=== PATIENT | female | born 1985 | race African-American/Black ===

== ENCOUNTER 2016-03-31 17:33 | Emergency (ER) | payer OTHER ==
[~2016-03-31] VITALS: Ht 165.1 cm; Wt 100.0 kg
[~2016-03-31 17:33] MED LIST: NOCURR
[2016-03-31 20:04] LABS: BASOPHILS # (AUTO) 0.04 K/uL (0.00-0.20); BASOPHILS % (AUTO) 0.3 % (0.0-2.0); EOSINOPHILS # (AUTO) 0.04 K/uL (0.00-0.70); EOSINOPHILS % (AUTO) 0.36 % (1.0-6.0); HEMATOCRIT 39.8 % (36-46); HEMOGLOBIN 12.9 g/dL (12.0-16.0); LYMPHOCYTES # (AUTO) 2.9 K/uL (1.0-4.8); LYMPHOCYTES % (AUTO) 22.8 % (22.0-44.0); MEAN CORPUSCULAR HEMOGLOBIN 27.5 pg (26.0-34.0); MEAN CORPUSCULAR HGB CONC 32.5 G/dL (31.0-37.0); MEAN CORPUSCULAR VOLUME 85 fL (80-100); MONOCYTES # (AUTO) 0.5 K/uL (0.1-1.0); MONOCYTES % (AUTO) 3.6 % (2.0-9.0); NEUTROPHILS # (AUTO) 9.1 K/uL (1.8-7.7); NEUTROPHILS % (AUTO) 72.9 % (40.0-70.0); PLATELET COUNT (AUTO) 288 K/uL (150-450); RED BLOOD CELL COUNT(AUTO) 4.69 MIL/uL (4.00-5.20); RED CELL DISTRIBUTION WIDTH 14.7 % (11.5-14.5); WHITE BLOOD COUNT (AUTO) 12.5 K/uL (4.5-11.0)
[2016-03-31 20:12] LABS: ANION GAP 9 mmol/L (8-16); CALCIUM, TOTAL 8.7 mg/dL (8.8-10.5); CARBON DIOXIDE 28 mmol/L (22-29); CHLORIDE 101 mmol/L (98-107); CREATININE 1.03 mg/dL (0.60-1.30); GLOMERULAR FILTR. RATE CALC > 60 mL/min (>60); POTASSIUM 3.9 mmol/L (3.5-5.1); SODIUM SERUM 138 mmol/L (136-145); UREA NITROGEN, BLOOD 9 mg/dL (7-18)
[2016-03-31 20:20] LABS: ALANINE AMINOTRANSFERASE 20 U/L (12-78); ALBUMIN 3.4 g/dL (3.4-5.0); ASPARTATE AMINOTRANSFERASE 12 U/L (15-37); BILIRUBIN,TOTAL 0.3 mg/dL (0.1-1.0); TOTAL PROTEIN, SERUM 7.6 g/dL (6.4-8.2)
[2016-03-31 22:04] VITALS: BP 146/88
[2016-03-31 22:58] LABS: APPEARANCE,URINE CLEAR (CLEAR); GLUCOSE, URINE (UA) NEGATIVE (NEGATIVE); KETONES,URINE NEGATIVE (NEGATIVE); LEUKOCYTE ESTERASE ,URINE NEGATIVE (NEGATIVE); OCCULT BLOOD,URINE NEGATIVE (NEGATIVE); PH,URINE 6.5 (5.0-8.0); PROTEIN,URINE NEGATIVE (NEGATIVE)
[2016-03-31 23:09] LABS: RBC,URINE 0-2 /HPF (0-2); SQUAMOUS EPITHELIAL CELL,UR Few /LPF (None Seen); WBC,URINE 0-2 /HPF (0-5)
[2016-03-31] MEDS ORDERED: HYDROCODONE/ACETAMINOPHEN 5-325 MG TABLET PO ONE (23:15)
[2016-03-31] MEDS ORDERED: ONDANSETRON HCL 4 MG TABLET PO ONE (23:15)
== END 2016-03-31 23:26 | disposition home or self-care (01) ==
LOC: EMS 17:34
DX: R10.9 Unspecified abdominal pain (principal); F17.210 Nicotine dependence, cigarettes, uncomplicated
CPT/HCPCS: 36415; 76856; 80053; 81001; 84703; 85025; 99285; Q0162

== ENCOUNTER 2016-06-02 15:10 | Emergency (ER) | payer OTHER ==
[~2016-06-02] VITALS: Ht 177.8 cm; Wt 100.0 kg
[2016-06-02] MEDS ORDERED: HYDROCODONE/ACETAMINOPHEN 5-325 MG TABLET PO ONE (15:45)
[2016-06-02 15:55] LABS: APPEARANCE,URINE CLOUDY (CLEAR); GLUCOSE, URINE (UA) NEGATIVE (NEGATIVE); KETONES,URINE NEGATIVE (NEGATIVE); OCCULT BLOOD,URINE NEGATIVE (NEGATIVE); PROTEIN,URINE TRACE (NEGATIVE)
[2016-06-02 15:57] LABS: BASOPHILS % (AUTO) 0.2 % (0.0-2.0); EOSINOPHILS % (AUTO) 0.5 % (1.0-6.0); HEMATOCRIT 40.7 % (36-46); HEMOGLOBIN 13.1 g/dL (12.0-16.0); LYMPHOCYTES # (AUTO) 2.1 K/uL (1.0-4.8); LYMPHOCYTES % (AUTO) 18.1 % (22.0-44.0); MEAN CORPUSCULAR HEMOGLOBIN 27.8 pg (26.0-34.0); MEAN CORPUSCULAR HGB CONC 32.1 G/dL (31.0-37.0); MEAN CORPUSCULAR VOLUME 86 fL (80-100); MONOCYTES # (AUTO) 0.5 K/uL (0.1-1.0); MONOCYTES % (AUTO) 4.3 % (2.0-9.0); NEUTROPHILS % (AUTO) 76.9 % (40.0-70.0); PLATELET COUNT (AUTO) 257 K/uL (150-450); RED BLOOD CELL COUNT(AUTO) 4.71 MIL/uL (4.00-5.20); RED CELL DISTRIBUTION WIDTH 14.6 % (11.5-14.5); WHITE BLOOD COUNT (AUTO) 11.6 K/uL (4.5-11.0)
[2016-06-02 15:59] LABS: LEUKOCYTE ESTERASE ,URINE TRACE (NEGATIVE)
[2016-06-02 16:00] LABS: RBC,URINE 0-2 /HPF (0-2); SQUAMOUS EPITHELIAL CELL,UR Many /LPF (None Seen)
[2016-06-02 16:12] LABS: ANION GAP 11 mmol/L (8-16); CARBON DIOXIDE 25 mmol/L (22-29); CHLORIDE 104 mmol/L (98-107); CREATININE 0.72 mg/dL (0.60-1.30); GLOMERULAR FILTR. RATE CALC > 60 mL/min (>60); POTASSIUM 4.2 mmol/L (3.5-5.1); SODIUM SERUM 140 mmol/L (136-145); UREA NITROGEN, BLOOD 9 mg/dL (7-18)
[2016-06-02 16:18] LABS: ALANINE AMINOTRANSFERASE 17 U/L (12-78); ALBUMIN 3.6 g/dL (3.4-5.0); ASPARTATE AMINOTRANSFERASE 11 U/L (15-37); BILIRUBIN,TOTAL 0.5 mg/dL (0.1-1.0); TOTAL PROTEIN, SERUM 7.8 g/dL (6.4-8.2)
[2016-06-02 17:36] VITALS: BP 140/85
== END 2016-06-02 17:49 | disposition home or self-care (01) ==
LOC: EMS 15:11
DX: N39.0 Urinary tract infection, site not specified (principal); D25.9 Leiomyoma of uterus, unspecified; F17.210 Nicotine dependence, cigarettes, uncomplicated
CPT/HCPCS: 76830; 76856; 99285

== ENCOUNTER 2016-06-30 13:34 | Emergency (ER) | payer OTHER ==
[~2016-06-30] VITALS: Ht 165.1 cm; Wt 104.5 kg
[2016-06-30] MEDS ORDERED: IBUP-1547 PO (13:45)
[2016-06-30] MEDS ORDERED: KETOROLAC TROMETHAMINE 30 MG/ML VIAL IVP ONE (15:00)
[2016-06-30 15:04] LABS: BASOPHILS # (AUTO) 0.01 K/uL (0.00-0.20); BASOPHILS % (AUTO) 0.1 % (0.0-2.0); EOSINOPHILS # (AUTO) 0.11 K/uL (0.00-0.70); HEMATOCRIT 39.8 % (36-46); HEMOGLOBIN 12.9 g/dL (12.0-16.0); LYMPHOCYTES # (AUTO) 2.4 K/uL (1.0-4.8); LYMPHOCYTES % (AUTO) 19.7 % (22.0-44.0); MEAN CORPUSCULAR HEMOGLOBIN 28.4 pg (26.0-34.0); MEAN CORPUSCULAR HGB CONC 32.4 G/dL (31.0-37.0); MEAN CORPUSCULAR VOLUME 87 fL (80-100); MONOCYTES # (AUTO) 0.2 K/uL (0.1-1.0); MONOCYTES % (AUTO) 1.7 % (2.0-9.0); NEUTROPHILS # (AUTO) 9.4 K/uL (1.8-7.7); NEUTROPHILS % (AUTO) 77.6 % (40.0-70.0); PLATELET COUNT (AUTO) 279 K/uL (150-450); RED BLOOD CELL COUNT(AUTO) 4.55 MIL/uL (4.00-5.20); RED CELL DISTRIBUTION WIDTH 13.8 % (11.5-14.5); WHITE BLOOD COUNT (AUTO) 12.1 K/uL (4.5-11.0)
[2016-06-30 15:38] LABS: ANION GAP 10 mmol/L (8-16); CALCIUM, TOTAL 8.8 mg/dL (8.8-10.5); CARBON DIOXIDE 24 mmol/L (22-29); CHLORIDE 103 mmol/L (98-107); CREATININE 0.74 mg/dL (0.60-1.30); GLOMERULAR FILTR. RATE CALC > 60 mL/min (>60); POTASSIUM 3.7 mmol/L (3.5-5.1); SODIUM SERUM 137 mmol/L (136-145); UREA NITROGEN, BLOOD 6 mg/dL (7-18)
[2016-06-30 15:43] LABS: ALANINE AMINOTRANSFERASE 17 U/L (12-78); ALBUMIN 3.5 g/dL (3.4-5.0); ASPARTATE AMINOTRANSFERASE 12 U/L (15-37); BILIRUBIN,TOTAL 0.3 mg/dL (0.1-1.0); TOTAL PROTEIN, SERUM 7.6 g/dL (6.4-8.2)
[2016-06-30] MEDS ORDERED: BARIUM SULFATE 0.1% SUSPENSION 450 ML BOTTLE PO ONE (16:00)
[2016-06-30] MEDS ORDERED: IOVERSOL 350 MG/ML 150 ML VIAL ONE (17:48)
[2016-06-30] MEDS ORDERED: SODIUM CHLORIDE 0.9% 100 ML ONE (17:48)
[2016-06-30 18:59] VITALS: BP 137/90
== END 2016-06-30 20:02 | disposition home or self-care (01) ==
LOC: EMS 13:37
DX: N83.202 Unspecified ovarian cyst, left side (principal); F17.210 Nicotine dependence, cigarettes, uncomplicated
CPT/HCPCS: 36415; 74177; 80053; 83690; 85025; 96374; 99285; J1885; J7050; Q9967; Z7610

== ENCOUNTER 2016-10-27 12:27 | Observation (INO) | payer SELFPAY ==
[~2016-10-27] VITALS: Ht 165.1 cm; Wt 113.5 kg
[2016-10-27 14:19] VITALS: BP 131/78
[2016-10-27] MEDS ORDERED: PREN-155 PO (14:40)
[2016-10-27] MEDS ORDERED: ACET-2116 PO (14:40)
[2016-10-27 15:06] VITALS: BP 131/78
== END 2016-10-27 15:53 | disposition home or self-care (01) ==
LOC: EMS 12:28 → 4S 12:50 → INTOOBSV 12:50
PROVIDERS: ADMIT Obstetrics & Gynecology; ATTEND Obstetrics & Gynecology
DX: O26.892 Other specified pregnancy related conditions, second trimester (principal); R10.9 Unspecified abdominal pain; Z3A.20 20 weeks gestation of pregnancy
CPT/HCPCS: 59025; 99285; G0378

== ENCOUNTER 2017-03-20 19:26 | Emergency (ER) | payer OTHER ==
[~2017-03-20] VITALS: Ht 172.7 cm; Wt 113.6 kg
[~2017-03-20 19:26] MED LIST changes: +ACET-2116 PO; -NOCURR; +PREN-155 PO
[2017-03-20 20:22] LABS: BASOPHILS % (AUTO) 0.1 % (0.0-2.0); EOSINOPHILS % (AUTO) 0.1 % (1.0-6.0); HEMATOCRIT 33.5 % (36-46); HEMOGLOBIN 11.2 g/dL (12.0-16.0); LYMPHOCYTES % (AUTO) 9.9 % (22.0-44.0); MEAN CORPUSCULAR HEMOGLOBIN 27.6 pg (26.0-34.0); MEAN CORPUSCULAR HGB CONC 33.4 G/dL (31.0-37.0); MEAN CORPUSCULAR VOLUME 83 fL (80-100); MONOCYTES # (AUTO) 0.5 K/uL (0.1-1.0); MONOCYTES % (AUTO) 4.8 % (2.0-9.0); NEUTROPHILS # (AUTO) 8.6 K/uL (1.8-7.7); NEUTROPHILS % (AUTO) 85.1 % (40.0-70.0); PLATELET COUNT (AUTO) 287 K/uL (150-450); RED BLOOD CELL COUNT(AUTO) 4.05 MIL/uL (4.00-5.20); RED CELL DISTRIBUTION WIDTH 15.7 % (11.5-14.5)
[2017-03-20 20:38] LABS: ANION GAP 10 mmol/L (8-16); CALCIUM, TOTAL 8.5 mg/dL (8.8-10.5); CARBON DIOXIDE 24 mmol/L (22-29); CHLORIDE 102 mmol/L (98-107); CREATININE 0.74 mg/dL (0.60-1.30); GLOMERULAR FILTR. RATE CALC > 60 mL/min (>60); GLUCOSE,RANDOM 130 mg/dL (70-110); POTASSIUM 3.6 mmol/L (3.5-5.1); SODIUM SERUM 136 mmol/L (136-145); UREA NITROGEN, BLOOD 9 mg/dL (7-18)
[2017-03-20 20:44] LABS: ALANINE AMINOTRANSFERASE 11 U/L (12-78); ALBUMIN 2.3 g/dL (3.4-5.0); ALKALINE PHOSPHATASE 88 U/L (46-116); ASPARTATE AMINOTRANSFERASE 18 U/L (15-37); BILIRUBIN,TOTAL 0.5 mg/dL (0.1-1.0); LIPASE 107 U/L (73-393)
[2017-03-20 20:46] LABS: PLATELET MORPHOLOGY COMMENT NORMAL
[2017-03-20 20:53] LABS: APPEARANCE,URINE CLOUDY (CLEAR); BILIRUBIN,URINE NEGATIVE (NEGATIVE); GLUCOSE, URINE (UA) NEGATIVE (NEGATIVE); KETONES,URINE NEGATIVE (NEGATIVE); LEUKOCYTE ESTERASE ,URINE MODERATE (NEGATIVE); NITRATE,URINE POSITIVE (NEGATIVE); OCCULT BLOOD,URINE LARGE (NEGATIVE); PROTEIN,URINE SEE CONFIRM (NEGATIVE)
[2017-03-20 20:59] LABS: RBC,URINE 26-50 /HPF (0-2); SULFOSALICYLIC ACID,URINE 3+ (Negative)
[2017-03-20 21:00] LABS: WBC,URINE >100 /HPF (0-5)
[2017-03-20 21:01] LABS: BACTERIA,URINE Moderate /HPF (None Seen); SQUAMOUS EPITHELIAL CELL,UR Few /LPF (None Seen)
[2017-03-20] MEDS ORDERED: SODIUM CHLORIDE 0.9% 1,000 ML IV ONE ×2 (21:30→23:30)
[2017-03-20] MEDS ORDERED: PROCHLORPERAZINE EDISYLATE 5 MG/ML 2 ML VIAL IVP ONE (21:30)
[2017-03-20] MEDS ORDERED: CefTRIAXone SODIUM 2 GM in DEXTROSE 5%-WATER 20 ML IV ONE ×2 (21:30→21:45)
[2017-03-20] MEDS ORDERED: MORPHINE SULFATE 4 MG/ML SYRINGE IVP ONE (21:30)
[2017-03-20] MEDS ORDERED: ACETAMINOPHEN 500 MG TABLET PO ONE (21:45)
[2017-03-20 23:50] VITALS: BP 138/84
== END 2017-03-21 00:35 | disposition home or self-care (01) ==
LOC: EMS 19:34
DX: N12 Tubulo-interstitial nephritis, not specified as acute or chronic (principal); F17.210 Nicotine dependence, cigarettes, uncomplicated
CPT/HCPCS: 36415; 80053; 81001; 83690; 84703; 85025; 87040; 87077; 87086; 87186; 96361; 96374; 96375; 99284; J0696; J0780; J2270; J7030; J7060

== ENCOUNTER 2017-09-18 14:59 | Emergency (ER) | payer OTHER ==
[~2017-09-18] VITALS: Ht 165.1 cm; Wt 90.9 kg
[2017-09-18 15:39] LABS: BASOPHILS % (AUTO) 0.2 % (0.0-2.0); EOSINOPHILS % (AUTO) 1.1 % (1.0-6.0); HEMOGLOBIN 12.2 g/dL (12.0-16.0); LYMPHOCYTES # (AUTO) 3.2 K/uL (1.0-4.8); LYMPHOCYTES % (AUTO) 23.9 % (22.0-44.0); MEAN CORPUSCULAR HEMOGLOBIN 26.9 pg (26.0-34.0); MEAN CORPUSCULAR VOLUME 79 fL (80-100); MONOCYTES # (AUTO) 0.6 K/uL (0.1-1.0); MONOCYTES % (AUTO) 4.4 % (2.0-9.0); NEUTROPHILS # (AUTO) 9.5 K/uL (1.8-7.7); NEUTROPHILS % (AUTO) 70.4 % (40.0-70.0); PLATELET COUNT (AUTO) 359 K/uL (150-450); RED BLOOD CELL COUNT(AUTO) 4.54 MIL/uL (4.00-5.20); RED CELL DISTRIBUTION WIDTH 14.5 % (11.5-14.5)
[2017-09-18 15:52] LABS: ANION GAP 11 mmol/L (8-16); CARBON DIOXIDE 24 mmol/L (22-29); CHLORIDE 103 mmol/L (98-107); CREATININE 0.72 mg/dL (0.60-1.30); GLOMERULAR FILTR. RATE CALC > 60 mL/min (>60); GLUCOSE,RANDOM 127 mg/dL (70-110); POTASSIUM 3.6 mmol/L (3.5-5.1); SODIUM SERUM 138 mmol/L (136-145); UREA NITROGEN, BLOOD 9 mg/dL (7-18)
[2017-09-18 15:58] LABS: ALANINE AMINOTRANSFERASE 17 U/L (12-78); ALBUMIN 3.5 g/dL (3.4-5.0); ALKALINE PHOSPHATASE 53 U/L (46-116); ASPARTATE AMINOTRANSFERASE 12 U/L (15-37); BILIRUBIN,TOTAL 0.4 mg/dL (0.1-1.0)
[2017-09-18 16:10] LABS: APPEARANCE,URINE CLEAR (CLEAR); BILIRUBIN,URINE NEGATIVE (NEGATIVE); GLUCOSE, URINE (UA) NEGATIVE (NEGATIVE); KETONES,URINE NEGATIVE (NEGATIVE); LEUKOCYTE ESTERASE ,URINE NEGATIVE (NEGATIVE); NITRATE,URINE NEGATIVE (NEGATIVE); OCCULT BLOOD,URINE NEGATIVE (NEGATIVE); PH,URINE 5.5 (5.0-8.0); PROTEIN,URINE POS 1+ (NEGATIVE)
[2017-09-18 16:10] LABS: LIPASE 270 U/L (73-393)
[2017-09-18] MEDS ORDERED: KETOROLAC TROMETHAMINE 60 MG/2 ML VIAL IM ONE (16:45)
[2017-09-18 17:29] VITALS: BP 148/86
== END 2017-09-18 18:25 | disposition home or self-care (01) ==
LOC: EMS 17:17
DX: R10.9 Unspecified abdominal pain (principal); M54.5 Low back pain; Q61.9 Cystic kidney disease, unspecified; F17.210 Nicotine dependence, cigarettes, uncomplicated; Z86.32 Personal history of gestational diabetes
CPT/HCPCS: 36415; 74176; 80053; 81003; 83690; 84703; 85025; 96372; 99285; J1885

== ENCOUNTER 2017-11-03 13:03 | Emergency (ER) | payer OTHER ==
[~2017-11-03] VITALS: Ht 165.1 cm; Wt 94.2 kg
[2017-11-03] MEDS ORDERED: ALPRAZolam 0.5 MG TABLET PO ONE (13:45)
[2017-11-03 14:22] LABS: BASOPHILS % (AUTO) 0.5 % (0.0-2.0); EOSINOPHILS % (AUTO) 1.6 % (1.0-6.0); HEMOGLOBIN 12.2 g/dL (12.0-16.0); LYMPHOCYTES # (AUTO) 2.1 K/uL (1.0-4.8); LYMPHOCYTES % (AUTO) 16.3 % (22.0-44.0); MEAN CORPUSCULAR HEMOGLOBIN 26.9 pg (26.0-34.0); MEAN CORPUSCULAR HGB CONC 33.1 G/dL (31.0-37.0); MEAN CORPUSCULAR VOLUME 81 fL (80-100); MONOCYTES # (AUTO) 0.4 K/uL (0.1-1.0); MONOCYTES % (AUTO) 3.3 % (2.0-9.0); NEUTROPHILS # (AUTO) 10.1 K/uL (1.8-7.7); NEUTROPHILS % (AUTO) 78.3 % (40.0-70.0); PLATELET COUNT (AUTO) 345 K/uL (150-450); RED BLOOD CELL COUNT(AUTO) 4.54 MIL/uL (4.00-5.20); RED CELL DISTRIBUTION WIDTH 15.1 % (11.5-14.5)
[2017-11-03 14:32] LABS: ANION GAP 10 mmol/L (8-16); CALCIUM, TOTAL 8.8 mg/dL (8.8-10.5); CARBON DIOXIDE 26 mmol/L (22-29); CHLORIDE 101 mmol/L (98-107); CREATININE 0.85 mg/dL (0.60-1.30); GLOMERULAR FILTR. RATE CALC > 60 mL/min (>60); GLUCOSE,RANDOM 129 mg/dL (70-110); POTASSIUM 3.6 mmol/L (3.5-5.1); SODIUM SERUM 137 mmol/L (136-145); UREA NITROGEN, BLOOD 11 mg/dL (7-18)
[2017-11-03 14:38] LABS: ALANINE AMINOTRANSFERASE 23 U/L (12-78); ALBUMIN 3.4 g/dL (3.4-5.0); ALKALINE PHOSPHATASE 57 U/L (46-116); ASPARTATE AMINOTRANSFERASE 20 U/L (15-37); BILIRUBIN,TOTAL 0.4 mg/dL (0.1-1.0); TOTAL PROTEIN, SERUM 7.9 g/dL (6.4-8.2)
[2017-11-03 14:43] LABS: APPEARANCE,URINE CLEAR (CLEAR); BILIRUBIN,URINE NEGATIVE (NEGATIVE); GLUCOSE, URINE (UA) NEGATIVE (NEGATIVE); KETONES,URINE NEGATIVE (NEGATIVE); LEUKOCYTE ESTERASE ,URINE NEGATIVE (NEGATIVE); NITRATE,URINE NEGATIVE (NEGATIVE); OCCULT BLOOD,URINE NEGATIVE (NEGATIVE); PROTEIN,URINE SEE CONFIRM (NEGATIVE); UROBILINOGEN,URINE 0.2 mg/dL (<=1.0)
[2017-11-03 14:53] LABS: SULFOSALICYLIC ACID,URINE 1+ (Negative)
[2017-11-03 14:54] LABS: BACTERIA,URINE None Seen /HPF (None Seen); RBC,URINE None Seen /HPF (0-2); SQUAMOUS EPITHELIAL CELL,UR Few /LPF (None Seen); WBC,URINE 0-2 /HPF (0-5)
[2017-11-03 15:55] VITALS: BP 139/75
== END 2017-11-03 15:58 | disposition home or self-care (01) ==
LOC: EMS 13:04
DX: F41.9 Anxiety disorder, unspecified (principal); F17.210 Nicotine dependence, cigarettes, uncomplicated
CPT/HCPCS: 85379; 93005; 99285

== ENCOUNTER 2017-11-20 17:50 | Emergency (ER) | payer OTHER ==
[~2017-11-20] VITALS: Ht 165.1 cm; Wt 90.9 kg
[2017-11-20 18:29] LABS: BASOPHILS % (AUTO) 0.5 % (0.0-2.0); EOSINOPHILS % (AUTO) 1.5 % (1.0-6.0); HEMATOCRIT 35.7 % (36-46); HEMOGLOBIN 11.7 g/dL (12.0-16.0); LYMPHOCYTES # (AUTO) 3.1 K/uL (1.0-4.8); LYMPHOCYTES % (AUTO) 24.4 % (22.0-44.0); MEAN CORPUSCULAR HEMOGLOBIN 26.2 pg (26.0-34.0); MEAN CORPUSCULAR HGB CONC 32.7 G/dL (31.0-37.0); MEAN CORPUSCULAR VOLUME 80 fL (80-100); MONOCYTES # (AUTO) 0.3 K/uL (0.1-1.0); MONOCYTES % (AUTO) 2.5 % (2.0-9.0); NEUTROPHILS # (AUTO) 9.1 K/uL (1.8-7.7); NEUTROPHILS % (AUTO) 71.1 % (40.0-70.0); PLATELET COUNT (AUTO) 326 K/uL (150-450); RED BLOOD CELL COUNT(AUTO) 4.44 MIL/uL (4.00-5.20); RED CELL DISTRIBUTION WIDTH 15.1 % (11.5-14.5)
[2017-11-20 18:34] LABS: APPEARANCE,URINE CLEAR (CLEAR); BILIRUBIN,URINE NEGATIVE (NEGATIVE); GLUCOSE, URINE (UA) NEGATIVE (NEGATIVE); KETONES,URINE NEGATIVE (NEGATIVE); LEUKOCYTE ESTERASE ,URINE NEGATIVE (NEGATIVE); NITRATE,URINE NEGATIVE (NEGATIVE); OCCULT BLOOD,URINE NEGATIVE (NEGATIVE); PH,URINE 5.5 (5.0-8.0); PROTEIN,URINE POS 1+ (NEGATIVE); UROBILINOGEN,URINE 0.2 mg/dL (<=1.0)
[2017-11-20 18:36] LABS: ANION GAP 9 mmol/L (8-16); CALCIUM, TOTAL 9.1 mg/dL (8.8-10.5); CARBON DIOXIDE 27 mmol/L (22-29); CHLORIDE 102 mmol/L (98-107); CREATININE 0.83 mg/dL (0.60-1.30); GLOMERULAR FILTR. RATE CALC > 60 mL/min (>60); GLUCOSE,RANDOM 145 mg/dL (70-110); POTASSIUM 3.7 mmol/L (3.5-5.1); SODIUM SERUM 138 mmol/L (136-145); UREA NITROGEN, BLOOD 8 mg/dL (7-18)
[2017-11-20 18:47] LABS: ALANINE AMINOTRANSFERASE 24 U/L (12-78); ALBUMIN 3.4 g/dL (3.4-5.0); ALKALINE PHOSPHATASE 55 U/L (46-116); ASPARTATE AMINOTRANSFERASE 15 U/L (15-37); BILIRUBIN,TOTAL 0.4 mg/dL (0.1-1.0); HCG,QUANTITATIVE < 1 mIU/mL (0-6); TOTAL PROTEIN, SERUM 7.6 g/dL (6.4-8.2)
[2017-11-20 19:20] LABS: BACTERIA,URINE Few /HPF (None Seen)
[2017-11-20 19:21] LABS: RBC,URINE None Seen /HPF (0-2); SQUAMOUS EPITHELIAL CELL,UR Moderate /LPF (None Seen); WBC,URINE 0-2 /HPF (0-5)
[2017-11-20] MEDS ORDERED: HYDROCODONE/ACETAMINOPHEN 5-325 MG TABLET PO ONE (20:00)
[2017-11-20 20:10] LABS: AMPHET/METH SCREEN,URINE NEGATIVE (NEGATIVE); BARBITURATE SCREEN, URINE NEGATIVE (NEGATIVE); BENZODIAZEPINES SCREEN,URINE NEGATIVE (NEGATIVE); CANNABINOID SCREEN,URINE NEGATIVE (NEGATIVE); COCAINE SCREEN,URINE NEGATIVE (NEGATIVE); METHADONE SCREEN, URINE NEGATIVE (NEGATIVE); OPIATE SCREEN,URINE NEGATIVE (NEGATIVE)
[2017-11-20 20:12] LABS: PHENCYCLIDINE SCREEN,URINE NEGATIVE (NEGATIVE)
[2017-11-20 20:26] VITALS: BP 133/84
== END 2017-11-20 20:37 | disposition home or self-care (01) ==
LOC: EMS 17:52
DX: N80.9 Endometriosis, unspecified (principal); F17.210 Nicotine dependence, cigarettes, uncomplicated; F41.9 Anxiety disorder, unspecified; E66.01 Morbid (severe) obesity due to excess calories; Z86.32 Personal history of gestational diabetes; Z68.33 Body mass index [BMI] 33.0-33.9, adult
CPT/HCPCS: 76856; 99285

== ENCOUNTER 2017-12-20 17:26 | Emergency (ER) | payer OTHER ==
[~2017-12-20] VITALS: Ht 165.1 cm; Wt 100.0 kg
[2017-12-20] MEDS ORDERED: POVIDONE-IODINE 10% 15 ML SOLUTION UD TP ONE (21:30)
[2017-12-20] MEDS ORDERED: LIDOCAINE 1% 10 ML VIAL INJ ONE (21:30)
[2017-12-20] MEDS ORDERED: HYDROCODONE/ACETAMINOPHEN 5-325 MG TABLET PO ONE (21:30)
[2017-12-20] MEDS ORDERED: CEPHALEXIN MONOHYDRATE 500 MG CAPSULE PO ONE (22:45)
[2017-12-20 22:53] VITALS: BP 148/80
== END 2017-12-20 22:54 | disposition home or self-care (01) ==
LOC: EMS 17:27
DX: L02.412 Cutaneous abscess of left axilla (principal); I10 Essential (primary) hypertension; F17.210 Nicotine dependence, cigarettes, uncomplicated
CPT/HCPCS: 10060; 99283; J3490

== ENCOUNTER 2018-02-10 09:54 | Emergency (ER) | payer OTHER ==
[~2018-02-10] VITALS: Ht 165.1 cm; Wt 100.0 kg
[2018-02-10] MEDS ORDERED: HYDROCODONE/ACETAMINOPHEN 5-325 MG TABLET PO ONE (11:30)
[2018-02-10] MEDS ORDERED: AMOX TR/POT CLAV 875 MG/125 MG TABLET PO ONE (11:30)
[2018-02-10 12:10] VITALS: BP 135/82
== END 2018-02-10 12:12 | disposition home or self-care (01) ==
LOC: EMS 09:55
DX: K04.7 Periapical abscess without sinus (principal); F17.210 Nicotine dependence, cigarettes, uncomplicated

== ENCOUNTER 2018-05-08 14:39 | Emergency (ER) | payer OTHER ==
[~2018-05-08] VITALS: Ht 165.1 cm; Wt 104.5 kg
[2018-05-08] MEDS ORDERED: HYPERTENSION MED PO (14:59)
[2018-05-08 20:15] VITALS: BP 128/84
== END 2018-05-08 20:15 | disposition home or self-care (01) ==
LOC: EMS 14:39
DX: J32.9 Chronic sinusitis, unspecified (principal); H66.92 Otitis media, unspecified, left ear; I10 Essential (primary) hypertension; Z79.899 Other long term (current) drug therapy

== ENCOUNTER 2018-05-10 13:22 | Emergency (ER) | payer OTHER ==
[~2018-05-10] VITALS: Ht 165.1 cm; Wt 104.5 kg
[~2018-05-10 13:22] MED LIST changes: -ACET-2116 PO; +HYPERTENSION MED PO; -PREN-155 PO
[2018-05-10 13:25] VITALS: BP 138/96
[2018-05-10] MEDS ORDERED: KETOROLAC TROMETHAMINE 10 MG TABLET PO ONE (15:00)
== END 2018-05-10 15:20 | disposition home or self-care (01) ==
LOC: EMS 13:22
DX: K08.89 Other specified disorders of teeth and supporting structures (principal); H65.93 Unspecified nonsuppurative otitis media, bilateral; I10 Essential (primary) hypertension

== ENCOUNTER 2018-07-27 12:40 | Emergency (ER) | payer OTHER ==
[~2018-07-27] VITALS: Ht 165.1 cm; Wt 100.0 kg
[2018-07-27] MEDS ORDERED: HYDR25TA PO (13:29)
[2018-07-27 14:15] VITALS: BP 18/79
== END 2018-07-27 15:19 | disposition home or self-care (01) ==
LOC: EMS 12:41
DX: N80.9 Endometriosis, unspecified (principal); R10.2 Pelvic and perineal pain; I10 Essential (primary) hypertension; F17.210 Nicotine dependence, cigarettes, uncomplicated
CPT/HCPCS: 99406

== ENCOUNTER 2019-05-02 10:53 | Emergency (ER) | payer OTHER ==
[~2019-05-02] VITALS: Ht 165.1 cm; Wt 113.6 kg
[~2019-05-02 10:53] MED LIST changes: +HYDR-1475 PO
[2019-05-02] MEDS ORDERED: HYDROCODONE/ACETAMINOPHEN 5-325 MG TABLET PO ONE (12:00)
[2019-05-02 12:06] LABS: BASOPHILS % (AUTO) 0.4 % (0.0-2.0); EOSINOPHILS % (AUTO) 1.8 % (1.0-6.0); HEMATOCRIT 38.5 % (36-46); HEMOGLOBIN 12.8 g/dL (12.0-16.0); LYMPHOCYTES % (AUTO) 18.3 % (22.0-44.0); MEAN CORPUSCULAR HEMOGLOBIN 26.7 pg (26.0-34.0); MEAN CORPUSCULAR HGB CONC 33.1 G/dL (31.0-37.0); MEAN CORPUSCULAR VOLUME 81 fL (80-100); MONOCYTES # (AUTO) 0.4 K/uL (0.1-1.0); MONOCYTES % (AUTO) 3.8 % (2.0-9.0); NEUTROPHILS # (AUTO) 8.5 K/uL (1.8-7.7); NEUTROPHILS % (AUTO) 75.7 % (40.0-70.0); PLATELET COUNT (AUTO) 345 K/uL (150-450); RED BLOOD CELL COUNT(AUTO) 4.78 MIL/uL (4.00-5.20)
[2019-05-02 12:29] LABS: ALANINE AMINOTRANSFERASE 23 U/L (12-78); ALBUMIN 3.5 g/dL (3.4-5.0); ALKALINE PHOSPHATASE 65 U/L (46-116); ASPARTATE AMINOTRANSFERASE 10 U/L (15-37); BILIRUBIN,TOTAL 0.2 mg/dL (0.1-1.0); CALCIUM, TOTAL 9.9 mg/dL (8.8-10.5); CHLORIDE 98 mmol/L (98-107); CREATININE 0.82 mg/dL (0.60-1.30); GLOMERULAR FILTR. RATE CALC > 60 mL/min (>60); GLUCOSE,RANDOM 212 mg/dL (70-110); HCG,QUANTITATIVE < 1 mIU/mL (0-6); LIPASE 171 U/L (73-393); POTASSIUM 3.7 mmol/L (3.5-5.1); SODIUM SERUM 134 mmol/L (136-145); TOTAL PROTEIN, SERUM 8.1 g/dL (6.4-8.2); UREA NITROGEN, BLOOD 9 mg/dL (7-18)
[2019-05-02 12:30] VITALS: BP 146/90
[2019-05-02 12:36] LABS: ANION GAP 8 mmol/L (8-16); CARBON DIOXIDE 28 mmol/L (22-29)
== END 2019-05-02 12:56 | disposition home or self-care (01) ==
LOC: EMS 10:57
DX: R10.2 Pelvic and perineal pain (principal); F17.210 Nicotine dependence, cigarettes, uncomplicated; I10 Essential (primary) hypertension; E11.9 Type 2 diabetes mellitus without complications

== ENCOUNTER 2019-08-30 16:27 | Emergency (ER) | payer OTHER ==
[~2019-08-30] VITALS: Ht 165.1 cm; Wt 122.7 kg
[~2019-08-30 16:27] MED LIST changes: -HYPERTENSION MED PO
[2019-08-30] MEDS ORDERED: IBUP-2271 PO (16:32)
[2019-08-30] MEDS ORDERED: ACET-66 PO (16:32)
[2019-08-30] MEDS ORDERED: METF-960 PO (16:32)
[2019-08-30 17:53] VITALS: BP 149/85
[2019-08-30 21:10] LABS: GLUCOSE,POINT OF CARE 193 MG/DL (70-110)
== END 2019-08-30 17:57 | disposition home or self-care (01) ==
LOC: EMS 16:30
DX: R51 Headache (principal); J02.9 Acute pharyngitis, unspecified; E11.9 Type 2 diabetes mellitus without complications; I10 Essential (primary) hypertension; F17.210 Nicotine dependence, cigarettes, uncomplicated; Z79.84 Long term (current) use of oral hypoglycemic drugs

== ENCOUNTER 2019-09-01 20:15 | Emergency (ER) | payer OTHER ==
[~2019-09-01] VITALS: Ht 165.1 cm; Wt 118.2 kg
[~2019-09-01 20:15] MED LIST changes: +ACET-66 PO; +IBUP-2271 PO; +METF-960 PO
[2019-09-01] MEDS ORDERED: CYCL10 PO (20:34)
[2019-09-01] MEDS ORDERED: KETOROLAC TROMETHAMINE 30 MG/ML VIAL IVP ONE (21:15)
[2019-09-01] MEDS ORDERED: ACETAMINOPHEN 500 MG TABLET PO ONE (21:15)
[2019-09-01 21:36] LABS: ANION GAP 8 mmol/L (8-16); CARBON DIOXIDE 30 mmol/L (22-29); CHLORIDE 102 mmol/L (98-107); CREATININE 0.71 mg/dL (0.60-1.30); GLOMERULAR FILTR. RATE CALC > 60 mL/min (>60); GLUCOSE,RANDOM 99 mg/dL (70-110); POTASSIUM 3.6 mmol/L (3.5-5.1); SODIUM SERUM 140 mmol/L (136-145); UREA NITROGEN, BLOOD 13 mg/dL (7-18)
[2019-09-01 21:45] LABS: HCG,QUANTITATIVE < 1 mIU/mL (0-6)
[2019-09-01 21:54] LABS: AMPHET/METH SCREEN,URINE NEGATIVE (NEGATIVE); BARBITURATE SCREEN, URINE NEGATIVE (NEGATIVE); BENZODIAZEPINES SCREEN,URINE NEGATIVE (NEGATIVE); CANNABINOID SCREEN,URINE NEGATIVE (NEGATIVE); COCAINE SCREEN,URINE NEGATIVE (NEGATIVE); METHADONE SCREEN, URINE NEGATIVE (NEGATIVE); OPIATE SCREEN,URINE NEGATIVE (NEGATIVE)
[2019-09-01 21:57] LABS: PHENCYCLIDINE SCREEN,URINE NEGATIVE (NEGATIVE)
[2019-09-01 22:39] LABS: BASOPHILS % (AUTO) 0.2 % (0.0-2.0); EOSINOPHILS % (AUTO) 1.6 % (1.0-6.0); HEMATOCRIT 37.5 % (36-46); LYMPHOCYTES # (AUTO) 3.5 K/uL (1.0-4.8); LYMPHOCYTES % (AUTO) 29.4 % (22.0-44.0); MEAN CORPUSCULAR HEMOGLOBIN 26.2 pg (26.0-34.0); MEAN CORPUSCULAR VOLUME 82 fL (80-100); MONOCYTES # (AUTO) 0.6 K/uL (0.1-1.0); MONOCYTES % (AUTO) 5.2 % (2.0-9.0); NEUTROPHILS # (AUTO) 7.6 K/uL (1.8-7.7); NEUTROPHILS % (AUTO) 63.6 % (40.0-70.0); PLATELET COUNT (AUTO) 350 K/uL (150-450); RED BLOOD CELL COUNT(AUTO) 4.58 MIL/uL (4.00-5.20); RED CELL DISTRIBUTION WIDTH 15.3 % (11.5-14.5)
[2019-09-01 22:52] VITALS: BP 158/82
== END 2019-09-01 23:15 | disposition left against medical advice (07) ==
LOC: EMS 20:15
DX: R51 Headache (principal); I10 Essential (primary) hypertension; E11.9 Type 2 diabetes mellitus without complications; Z79.899 Other long term (current) drug therapy; F17.210 Nicotine dependence, cigarettes, uncomplicated
CPT/HCPCS: 36415; 80048; 80307; 84702; 85025; 96374; 99283; J1885

== ENCOUNTER 2019-10-28 19:00 | Emergency (ER) | payer OTHER ==
[~2019-10-28] VITALS: Ht 165.1 cm; Wt 122.7 kg
[~2019-10-28 19:00] MED LIST changes: +CYCL10 PO; -IBUP-2271 PO; +IBUP-2759 PO
[2019-10-28 20:47] VITALS: BP 135/77
== END 2019-10-28 21:55 | disposition home or self-care (01) ==
LOC: EMS 19:00
DX: K04.7 Periapical abscess without sinus (principal); E11.9 Type 2 diabetes mellitus without complications; I10 Essential (primary) hypertension; F17.210 Nicotine dependence, cigarettes, uncomplicated; Z79.899 Other long term (current) drug therapy
CPT/HCPCS: 99283; Z7502

== ENCOUNTER 2019-12-11 17:28 | Emergency (ER) | payer OTHER ==
[~2019-12-11] VITALS: Ht 165.1 cm; Wt 122.7 kg
[2019-12-11] MEDS ORDERED: ACETAMINOPHEN/CODEINE 300-30 MG TABLET PO ONE ×2 (19:00→21:45)
[2019-12-11 19:53] LABS: APPEARANCE,URINE CLEAR (CLEAR); BILIRUBIN,URINE NEGATIVE (NEGATIVE); GLUCOSE, URINE (UA) NEGATIVE (NEGATIVE); KETONES,URINE NEGATIVE (NEGATIVE); LEUKOCYTE ESTERASE ,URINE NEGATIVE (NEGATIVE); NITRATE,URINE NEGATIVE (NEGATIVE); OCCULT BLOOD,URINE NEGATIVE (NEGATIVE); PROTEIN,URINE SEE CONFIRM (NEGATIVE)
[2019-12-11 20:27] LABS: SULFOSALICYLIC ACID,URINE 3+ (Negative)
[2019-12-11 20:29] LABS: BACTERIA,URINE None Seen /HPF (None Seen); CALCIUM OXALATE CRYSTALS,UR Few /LPF (None Seen); RBC,URINE None Seen /HPF (0-2); SQUAMOUS EPITHELIAL CELL,UR Moderate /LPF (None Seen); WBC,URINE None Seen /HPF (0-5)
[2019-12-11 21:50] VITALS: BP 145/79
== END 2019-12-11 22:00 | disposition home or self-care (01) ==
LOC: EMS 17:44
DX: N80.9 Endometriosis, unspecified (principal); F17.210 Nicotine dependence, cigarettes, uncomplicated; E11.9 Type 2 diabetes mellitus without complications; I10 Essential (primary) hypertension; Z79.84 Long term (current) use of oral hypoglycemic drugs
CPT/HCPCS: 76856; 81001-TC; 81002-TC; Z7502; Z7610

== ENCOUNTER 2020-01-30 14:39 | Emergency (ER) | payer OTHER ==
[~2020-01-30] VITALS: Ht 165.1 cm; Wt 100.0 kg
[~2020-01-30 14:39] MED LIST changes: +ACET-3385 PO; -ACET-66 PO
[2020-01-30 15:34] VITALS: BP 140/85
== END 2020-01-30 15:34 | disposition home or self-care (01) ==
LOC: EMS 14:39
DX: N80.9 Endometriosis, unspecified (principal); F17.210 Nicotine dependence, cigarettes, uncomplicated; E11.9 Type 2 diabetes mellitus without complications; I10 Essential (primary) hypertension; Z79.84 Long term (current) use of oral hypoglycemic drugs
CPT/HCPCS: 99406; Z7502

== ENCOUNTER 2020-09-08 16:27 | Emergency (ER) | payer OTHER ==
[~2020-09-08] VITALS: Ht 165.1 cm; Wt 102.3 kg
[~2020-09-08 16:27] MED LIST changes: -HYDR-1475 PO; +HYDR25TA2 PO
[2020-09-08 18:14] LABS: COVID AG,FIA SOURCE NASOPHARYNGEAL
[2020-09-08] MEDS ORDERED: ACETAMINOPHEN 325 MG TABLET PO ONE (18:30)
[2020-09-08 19:19] VITALS: BP 157/96
== END 2020-09-08 19:33 | disposition home or self-care (01) ==
LOC: EMS 16:27
DX: J02.9 Acute pharyngitis, unspecified (principal); Z20.822 Contact with and (suspected) exposure to COVID-19; F17.210 Nicotine dependence, cigarettes, uncomplicated; E11.9 Type 2 diabetes mellitus without complications; I10 Essential (primary) hypertension; Z79.84 Long term (current) use of oral hypoglycemic drugs; Z79.899 Other long term (current) drug therapy
CPT/HCPCS: 82962; 87430; 99283

== ENCOUNTER 2020-09-12 10:12 | Emergency (ER) | payer OTHER ==
[~2020-09-12] VITALS: Ht 172.7 cm; Wt 120.5 kg
[2020-09-12] MEDS ORDERED: ACETAMINOPHEN 325 MG TABLET PO ONE (11:00)
[2020-09-12 11:30] VITALS: BP 133/81
== END 2020-09-12 11:55 | disposition home or self-care (01) ==
LOC: EMS 10:12
DX: K02.9 Dental caries, unspecified (principal); E11.9 Type 2 diabetes mellitus without complications; I10 Essential (primary) hypertension; F17.210 Nicotine dependence, cigarettes, uncomplicated; Z79.84 Long term (current) use of oral hypoglycemic drugs
CPT/HCPCS: 82962; 99283

== ENCOUNTER 2020-09-23 14:28 | Emergency (ER) | payer OTHER ==
[~2020-09-23] VITALS: Ht 165.1 cm; Wt 113.6 kg
[2020-09-23 14:33] VITALS: BP 138/94
[2020-09-23] MEDS ORDERED: LIDOCAINE 1% 10 ML VIAL IM ONE (16:00)
[2020-09-23] MEDS ORDERED: IBUPROFEN 400 MG TABLET PO ONE (17:00)
[2020-09-23] MEDS ORDERED: ACETAMINOPHEN 325 MG TABLET PO ONE (17:00)
== END 2020-09-23 17:25 | disposition home or self-care (01) ==
LOC: EMS 14:37
DX: L02.416 Cutaneous abscess of left lower limb (principal); E11.9 Type 2 diabetes mellitus without complications; I10 Essential (primary) hypertension; F17.210 Nicotine dependence, cigarettes, uncomplicated
CPT/HCPCS: 10060; 99283; J3490

== ENCOUNTER 2020-12-23 15:38 | Emergency (ER) | payer OTHER ==
[~2020-12-23] VITALS: Ht 165.1 cm; Wt 113.6 kg
[~2020-12-23 15:38] MED LIST changes: -CYCL10 PO; +CYCL10TA17 PO; +METF-1211 PO; -METF-960 PO
[2020-12-23 16:17] LABS: GLUCOSE,POINT OF CARE 103 MG/DL (70-110)
[2020-12-23] MEDS ORDERED: HYDROCODONE/ACETAMINOPHEN 5-325 MG TABLET PO ONE (18:15)
[2020-12-23] MEDS ORDERED: ATOR40TA71 PO (18:18)
[2020-12-23 19:04] LABS: APPEARANCE,URINE CLEAR (CLEAR); BILIRUBIN,URINE NEGATIVE (NEGATIVE); GLUCOSE, URINE (UA) NEGATIVE (NEGATIVE); KETONES,URINE NEGATIVE (NEGATIVE); LEUKOCYTE ESTERASE ,URINE NEGATIVE (NEGATIVE); NITRATE,URINE NEGATIVE (NEGATIVE); OCCULT BLOOD,URINE NEGATIVE (NEGATIVE); PROTEIN,URINE POS 1+ (NEGATIVE); UROBILINOGEN,URINE 0.2 mg/dL (<=1.0)
[2020-12-23 19:10] VITALS: BP 148/96
== END 2020-12-23 19:17 | disposition home or self-care (01) ==
LOC: EMS 15:53
DX: R10.2 Pelvic and perineal pain (principal)
CPT/HCPCS: 81003; 82962; 84703; 99283

== ENCOUNTER 2021-01-02 08:04 | Emergency (ER) | payer OTHER ==
[~2021-01-02] VITALS: Ht 165.1 cm; Wt 114.0 kg
[~2021-01-02 08:04] MED LIST changes: +ATOR40TA71 PO
[2021-01-02 08:26] VITALS: BP 131/73
== END 2021-01-02 11:29 | disposition home or self-care (01) ==
LOC: EMS 08:04
DX: N80.9 Endometriosis, unspecified (principal); E11.9 Type 2 diabetes mellitus without complications; F17.210 Nicotine dependence, cigarettes, uncomplicated; Z79.84 Long term (current) use of oral hypoglycemic drugs; Z79.899 Other long term (current) drug therapy
CPT/HCPCS: 99282; Z7502

== ENCOUNTER 2021-01-24 16:35 | Emergency (ER) | payer OTHER ==
[~2021-01-24] VITALS: Ht 165.1 cm; Wt 113.6 kg
[2021-01-24 16:48] VITALS: BP 158/97
[2021-01-24 17:12] LABS: BASOPHILS % (AUTO) 0.2 % (0.0-2.0); EOSINOPHILS % (AUTO) 1.2 % (1.0-6.0); HEMATOCRIT 36.2 % (36-46); HEMOGLOBIN 11.9 g/dL (12.0-16.0); LYMPHOCYTES % (AUTO) 24.9 % (22.0-44.0); MEAN CORPUSCULAR HEMOGLOBIN 26.7 pg (26.0-34.0); MEAN CORPUSCULAR HGB CONC 32.8 G/dL (31.0-37.0); MEAN CORPUSCULAR VOLUME 81 fL (80-100); MONOCYTES # (AUTO) 0.3 K/uL (0.1-1.0); MONOCYTES % (AUTO) 2.6 % (2.0-9.0); NEUTROPHILS # (AUTO) 8.5 K/uL (1.8-7.7); NEUTROPHILS % (AUTO) 71.1 % (40.0-70.0); PLATELET COUNT (AUTO) 358 K/uL (150-450); RED BLOOD CELL COUNT(AUTO) 4.46 MIL/uL (4.00-5.20)
[2021-01-24 17:18] LABS: ANION GAP 8 mmol/L (8-16); CALCIUM, TOTAL 8.9 mg/dL (8.8-10.5); CARBON DIOXIDE 26 mmol/L (22-29); CHLORIDE 103 mmol/L (98-107); GLOMERULAR FILTR. RATE CALC > 60 mL/min (>60); GLUCOSE,RANDOM 205 mg/dL (70-110); POTASSIUM 3.5 mmol/L (3.5-5.1); SODIUM SERUM 137 mmol/L (136-145); UREA NITROGEN, BLOOD 12 mg/dL (7-18)
[2021-01-24 17:29] LABS: ALANINE AMINOTRANSFERASE 21 U/L (12-78); ALBUMIN 3.5 g/dL (3.4-5.0); ALKALINE PHOSPHATASE 64 U/L (46-116); ASPARTATE AMINOTRANSFERASE 14 U/L (15-37); BILIRUBIN,TOTAL 0.3 mg/dL (0.1-1.0); HCG,QUANTITATIVE < 1 mIU/mL (0-6); LIPASE 146 U/L (73-393); TOTAL PROTEIN, SERUM 7.8 g/dL (6.4-8.2)
[2021-01-24] MEDS ORDERED: TraMADol HCL 50 MG TABLET PO ONE (17:30)
== END 2021-01-24 17:46 | disposition home or self-care (01) ==
LOC: EMS 16:40
DX: N80.9 Endometriosis, unspecified (principal); E11.9 Type 2 diabetes mellitus without complications; F17.210 Nicotine dependence, cigarettes, uncomplicated
CPT/HCPCS: 80053; 83690; 84702; 85025; 99283

== ENCOUNTER 2021-04-15 12:36 | Emergency (ER) | payer OTHER ==
[~2021-04-15] VITALS: Ht 165.1 cm; Wt 113.6 kg
[2021-04-15] MEDS ORDERED: HYDROCODONE/ACETAMINOPHEN 5-325 MG TABLET PO ONE (13:15)
[2021-04-15 13:18] LABS: APPEARANCE,URINE CLEAR (CLEAR); BILIRUBIN,URINE NEGATIVE (NEGATIVE); GLUCOSE, URINE (UA) NEGATIVE (NEGATIVE); KETONES,URINE NEGATIVE (NEGATIVE); LEUKOCYTE ESTERASE ,URINE NEGATIVE (NEGATIVE); NITRATE,URINE NEGATIVE (NEGATIVE); OCCULT BLOOD,URINE NEGATIVE (NEGATIVE); PH,URINE 5.5 (5.0-8.0); PROTEIN,URINE NEGATIVE (NEGATIVE); SPECIFIC GRAVITIY, URINE 1.008 (1.003-1.030); UROBILINOGEN,URINE <=1.0 mg/dL (<=1.0)
[2021-04-15 13:20] LABS: BACTERIA,URINE None Seen /HPF (None Seen); RBC,URINE None Seen /HPF (0-2); WBC,URINE None Seen /HPF (0-5)
[2021-04-15 13:45] VITALS: BP 144/81
[2021-04-15] MEDS ORDERED: HYDR-4723 PO (14:18)
== END 2021-04-15 14:32 | disposition home or self-care (01) ==
LOC: EMS 12:42
DX: N80.9 Endometriosis, unspecified (principal); I10 Essential (primary) hypertension; E11.9 Type 2 diabetes mellitus without complications; Z79.84 Long term (current) use of oral hypoglycemic drugs; Z79.899 Other long term (current) drug therapy; F17.210 Nicotine dependence, cigarettes, uncomplicated
CPT/HCPCS: 81001; 84703; 99283

== ENCOUNTER 2021-05-19 12:07 | Emergency (ER) | payer OTHER ==
[~2021-05-19] VITALS: Ht 165.1 cm; Wt 11.8 kg
[~2021-05-19 12:07] MED LIST changes: +CYCL-448 PO; -CYCL10TA17 PO; +HYDR-4723 PO
[2021-05-19 13:45] LABS: BASOPHILS % (AUTO) 0.1 % (0.0-2.0); HEMOGLOBIN 11.8 g/dL (12.0-16.0); LYMPHOCYTES # (AUTO) 3.2 K/uL (1.0-4.8); LYMPHOCYTES % (AUTO) 26.7 % (22.0-44.0); MEAN CORPUSCULAR HEMOGLOBIN 27.3 pg (26.0-34.0); MEAN CORPUSCULAR HGB CONC 32.9 G/dL (31.0-37.0); MEAN CORPUSCULAR VOLUME 83 fL (80-100); MONOCYTES # (AUTO) 0.5 K/uL (0.1-1.0); NEUTROPHILS # (AUTO) 8.1 K/uL (1.8-7.7); NEUTROPHILS % (AUTO) 68.2 % (40.0-70.0); PLATELET COUNT (AUTO) 339 K/uL (150-450); RED BLOOD CELL COUNT(AUTO) 4.34 MIL/uL (4.00-5.20); RED CELL DISTRIBUTION WIDTH 15.2 % (11.5-14.5)
[2021-05-19] MEDS ORDERED: HYDROCODONE/ACETAMINOPHEN 5-325 MG TABLET PO ONE (13:45)
[2021-05-19 13:58] LABS: ANION GAP 6 mmol/L (8-16); CARBON DIOXIDE 24 mmol/L (22-29); CHLORIDE 103 mmol/L (98-107); CREATININE 0.85 mg/dL (0.60-1.30); GLOMERULAR FILTR. RATE CALC > 60 mL/min (>60); GLUCOSE,RANDOM 100 mg/dL (70-110); POTASSIUM 3.8 mmol/L (3.5-5.1); SODIUM SERUM 133 mmol/L (136-145); UREA NITROGEN, BLOOD 10 mg/dL (7-18)
[2021-05-19 14:03] LABS: ALANINE AMINOTRANSFERASE 19 U/L (12-78); ALBUMIN 3.6 g/dL (3.4-5.0); ALKALINE PHOSPHATASE 57 U/L (46-116); ASPARTATE AMINOTRANSFERASE 14 U/L (15-37); BILIRUBIN,TOTAL 0.3 mg/dL (0.1-1.0); LIPASE 147 U/L (73-393); TOTAL PROTEIN, SERUM 7.8 g/dL (6.4-8.2)
[2021-05-19 15:20] LABS: APPEARANCE,URINE CLEAR (CLEAR); BILIRUBIN,URINE NEGATIVE (NEGATIVE); GLUCOSE, URINE (UA) NEGATIVE (NEGATIVE); KETONES,URINE NEGATIVE (NEGATIVE); LEUKOCYTE ESTERASE ,URINE SMALL (NEGATIVE); NITRATE,URINE NEGATIVE (NEGATIVE); OCCULT BLOOD,URINE NEGATIVE (NEGATIVE); PROTEIN,URINE 30-70 mg/dL (NEGATIVE); UROBILINOGEN,URINE <=1.0 mg/dL (<=1.0)
[2021-05-19 15:37] LABS: BACTERIA,URINE None Seen /HPF (None Seen); RBC,URINE None Seen /HPF (0-2); SQUAMOUS EPITHELIAL CELL,UR Few /LPF (None Seen); WBC,URINE 0-2 /HPF (0-5)
[2021-05-19 16:05] VITALS: BP 150/90
[2021-05-19] MEDS ORDERED: HYDR-4723 PO (16:17)
== END 2021-05-19 16:45 | disposition home or self-care (01) ==
LOC: EMS 12:10
DX: N80.9 Endometriosis, unspecified (principal); E11.9 Type 2 diabetes mellitus without complications; I10 Essential (primary) hypertension; F17.210 Nicotine dependence, cigarettes, uncomplicated; Z79.84 Long term (current) use of oral hypoglycemic drugs
CPT/HCPCS: 80053; 81001; 82962; 83690; 85025; 99283

== ENCOUNTER 2021-08-23 12:31 | Emergency (ER) | payer OTHER ==
[~2021-08-23] VITALS: Ht 165.1 cm; Wt 113.6 kg
[2021-08-23 12:40] LABS: COVID AG,FIA SOURCE NASAL SWAB
[2021-08-23] MEDS ORDERED: ACETAMINOPHEN 500 MG TABLET PO ONE (14:30)
[2021-08-23] MEDS ORDERED: NIRM1TAB5 PO (15:32)
[2021-08-23 15:36] VITALS: BP 131/71
== END 2021-08-23 15:37 | disposition home or self-care (01) ==
LOC: EMS 12:34
DX: J02.9 Acute pharyngitis, unspecified (principal); R05.9 Cough, unspecified; E11.9 Type 2 diabetes mellitus without complications; I10 Essential (primary) hypertension; N80.9 Endometriosis, unspecified; F17.210 Nicotine dependence, cigarettes, uncomplicated; Z86.39 Personal history of other endocrine, nutritional and metabolic disease; Z20.822 Contact with and (suspected) exposure to COVID-19
CPT/HCPCS: 99283

== ENCOUNTER 2021-08-26 19:58 | Emergency (ER) | payer OTHER ==
[~2021-08-26] VITALS: Ht 165.1 cm; Wt 113.6 kg
[~2021-08-26 19:58] MED LIST changes: +NIRM1TAB5 PO
[2021-08-26 20:46] LABS: GLUCOMETER DEV NAME(LOC) ERT.5; GLUCOSE,POINT OF CARE 137 MG/DL (70-110)
[2021-08-26] MEDS ORDERED: HYDROCODONE/ACETAMINOPHEN 5-325 MG TABLET PO ONE (21:30)
[2021-08-26] MEDS ORDERED: KETOROLAC TROMETHAMINE 60 MG/2 ML VIAL IM ONE (21:30)
[2021-08-26 21:31] LABS: BASOPHILS % (AUTO) 0.2 % (0.0-2.0); EOSINOPHILS % (AUTO) 0.2 % (1.0-6.0); HEMATOCRIT 36.1 % (36-46); HEMOGLOBIN 11.8 g/dL (12.0-16.0); LYMPHOCYTES % (AUTO) 24.1 % (22.0-44.0); MEAN CORPUSCULAR HEMOGLOBIN 26.8 pg (26.0-34.0); MEAN CORPUSCULAR HGB CONC 32.7 G/dL (31.0-37.0); MEAN CORPUSCULAR VOLUME 82 fL (80-100); MONOCYTES # (AUTO) 0.3 K/uL (0.1-1.0); MONOCYTES % (AUTO) 3.5 % (2.0-9.0); PLATELET COUNT (AUTO) 353 K/uL (150-450); RED BLOOD CELL COUNT(AUTO) 4.41 MIL/uL (4.00-5.20); RED CELL DISTRIBUTION WIDTH 14.3 % (11.5-14.5)
[2021-08-26 21:42] LABS: ANION GAP 11 mmol/L (8-16); CALCIUM, TOTAL 9.1 mg/dL (8.8-10.5); CARBON DIOXIDE 24 mmol/L (22-29); CHLORIDE 100 mmol/L (98-107); CREATININE 0.87 mg/dL (0.60-1.30); GLOMERULAR FILTR. RATE CALC > 60 mL/min (>60); GLUCOSE,RANDOM 136 mg/dL (70-110); POTASSIUM 3.9 mmol/L (3.5-5.1); SODIUM SERUM 135 mmol/L (136-145); UREA NITROGEN, BLOOD 8 mg/dL (7-18)
[2021-08-26] MEDS ORDERED: IBUP-1554 PO (22:09)
[2021-08-26] MEDS ORDERED: GUAIFDM PO (22:09)
[2021-08-26] MEDS ORDERED: ACET-2080 PO (22:09)
[2021-08-26 22:36] VITALS: BP 150/89
[2021-08-26 22:36] LABS: COVID AG,FIA SOURCE NASOPHARYNGEAL
== END 2021-08-26 22:50 | disposition home or self-care (01) ==
LOC: EMS 19:58
DX: U07.1 COVID-19 (principal); N80.9 Endometriosis, unspecified; I10 Essential (primary) hypertension; E11.9 Type 2 diabetes mellitus without complications; F17.210 Nicotine dependence, cigarettes, uncomplicated; Z79.899 Other long term (current) drug therapy
CPT/HCPCS: 99283; 87426; 80048; 82962; 84703; 85025; 36415; 96372; J1885; C9803

== ENCOUNTER 2021-09-25 23:52 | Emergency (ER) | payer OTHER ==
[~2021-09-25] VITALS: Ht 165.1 cm; Wt 127.0 kg
[~2021-09-25 23:52] MED LIST changes: +ACET-2080 PO; +GUAIFDM PO; +IBUP-1554 PO
[2021-09-26 00:10] VITALS: BP 155/91
[2021-09-26] MEDS ORDERED: AMOX250C4 PO (04:21)
[2021-09-26] MEDS ORDERED: AMOXICILLIN TRIHYDRATE 250 MG CAPSULE PO ONE (04:30)
[2021-09-26] MEDS ORDERED: KETOROLAC TROMETHAMINE 30 MG/ML VIAL IM ONE (04:30)
[2021-09-26] MEDS ORDERED: TRAM50TA4 PO (04:32)
== END 2021-09-26 04:40 | disposition home or self-care (01) ==
LOC: EMS 23:53
DX: K08.89 Other specified disorders of teeth and supporting structures (principal); K01.1 Impacted teeth; I10 Essential (primary) hypertension; E11.9 Type 2 diabetes mellitus without complications; F17.210 Nicotine dependence, cigarettes, uncomplicated; Z79.899 Other long term (current) drug therapy
CPT/HCPCS: 99283; 96372; J1885

== ENCOUNTER 2021-11-05 18:55 | Emergency (ER) | payer OTHER ==
[~2021-11-05] VITALS: Ht 165.1 cm; Wt 113.0 kg
[~2021-11-05 18:55] MED LIST changes: +AMOX250C4 PO; +TRAM50TA4 PO
[2021-11-05] MEDS ORDERED: LOSA-382 PO (19:20)
[2021-11-05] MEDS ORDERED: KETOROLAC TROMETHAMINE 60 MG/2 ML VIAL IM ONE (21:00)
[2021-11-05] MEDS ORDERED: HYDROCODONE/ACETAMINOPHEN 5-325 MG TABLET PO ONE (21:00)
[2021-11-05 21:14] LABS: BASOPHILS % (AUTO) 0.3 % (0.0-2.0); EOSINOPHILS % (AUTO) 0.8 % (1.0-6.0); HEMATOCRIT 37.3 % (36-46); HEMOGLOBIN 11.9 g/dL (12.0-16.0); LYMPHOCYTES # (AUTO) 3.4 K/uL (1.0-4.8); LYMPHOCYTES % (AUTO) 30.8 % (22.0-44.0); MEAN CORPUSCULAR HEMOGLOBIN 26.7 pg (26.0-34.0); MEAN CORPUSCULAR HGB CONC 31.9 G/dL (31.0-37.0); MEAN CORPUSCULAR VOLUME 84 fL (80-100); MONOCYTES # (AUTO) 0.4 K/uL (0.1-1.0); MONOCYTES % (AUTO) 3.7 % (2.0-9.0); NEUTROPHILS # (AUTO) 7.1 K/uL (1.8-7.7); NEUTROPHILS % (AUTO) 64.4 % (40.0-70.0); PLATELET COUNT (AUTO) 353 K/uL (150-450); RED BLOOD CELL COUNT(AUTO) 4.45 MIL/uL (4.00-5.20); RED CELL DISTRIBUTION WIDTH 14.9 % (11.5-14.5)
[2021-11-05 21:22] LABS: ANION GAP 8 mmol/L (8-16); CALCIUM, TOTAL 9.4 mg/dL (8.8-10.5); CARBON DIOXIDE 26 mmol/L (22-29); CHLORIDE 104 mmol/L (98-107); GLUCOSE,RANDOM 124 mg/dL (70-110); POTASSIUM 3.9 mmol/L (3.5-5.1); SODIUM SERUM 138 mmol/L (136-145); UREA NITROGEN, BLOOD 7 mg/dL (7-18)
[2021-11-05 21:24] LABS: GLOMERULAR FILTR. RATE CALC > 60 mL/min (>60)
[2021-11-05 21:28] LABS: ALANINE AMINOTRANSFERASE 16 U/L (12-78); ALBUMIN 3.7 g/dL (3.4-5.0); ALKALINE PHOSPHATASE 51 U/L (46-116); ASPARTATE AMINOTRANSFERASE 12 U/L (15-37); BILIRUBIN,TOTAL 0.3 mg/dL (0.1-1.0)
[2021-11-05] MEDS ORDERED: IBUP-1554 PO (22:09)
[2021-11-05] MEDS ORDERED: ACET-2080 PO (22:09)
[2021-11-05 22:15] VITALS: BP 145/80
== END 2021-11-05 22:24 | disposition home or self-care (01) ==
LOC: EMS 18:59
DX: R10.2 Pelvic and perineal pain (principal); N80.9 Endometriosis, unspecified; E11.9 Type 2 diabetes mellitus without complications; I10 Essential (primary) hypertension; F17.210 Nicotine dependence, cigarettes, uncomplicated; Z86.32 Personal history of gestational diabetes
CPT/HCPCS: 99283; 80053; 84703; 85025; 36415; 81025; 96372; J1885

== ENCOUNTER 2021-11-11 17:12 | Emergency (ER) | payer OTHER ==
[~2021-11-11] VITALS: Ht 165.1 cm; Wt 113.6 kg
[~2021-11-11 17:12] MED LIST changes: -AMOX250C4 PO; -GUAIFDM PO; -HYDR-4723 PO; -IBUP-2759 PO; +LOSA-382 PO; -NIRM1TAB5 PO
[2021-11-11 17:24] VITALS: BP 159/79
[2021-11-11] MEDS ORDERED: HYDROCODONE/ACETAMINOPHEN 5-325 MG TABLET PO ONE (18:30)
[2021-11-11] MEDS ORDERED: HYDR-4723 PO (18:47)
== END 2021-11-11 18:58 | disposition home or self-care (01) ==
LOC: EMS 17:13
DX: S02.5XXA Fracture of tooth (traumatic), initial encounter for closed fracture (principal); E11.9 Type 2 diabetes mellitus without complications; I10 Essential (primary) hypertension; N80.9 Endometriosis, unspecified; F17.210 Nicotine dependence, cigarettes, uncomplicated; Z86.32 Personal history of gestational diabetes; X58.XXXA Exposure to other specified factors, initial encounter; Y93.89 Activity, other specified; Y92.89 Other specified places as the place of occurrence of the external cause; Y99.8 Other external cause status
CPT/HCPCS: 99283

== ENCOUNTER 2021-12-27 01:19 | Emergency (ER) | payer OTHER ==
[~2021-12-27] VITALS: Ht 165.1 cm; Wt 113.6 kg
[~2021-12-27 01:19] MED LIST changes: -ACET-3385 PO; +HYDR-4723 PO; +TRAM-559 PO; -TRAM50TA4 PO
[2021-12-27 01:24] VITALS: BP 142/94
[2021-12-27 03:19] LABS: COVID AG,FIA SOURCE NASAL SWAB
[2021-12-27 03:50] LABS: INFLUENZA TYPE A NEGATIVE FOR TYPE A (NEGATIVE); INFLUENZA TYPE B NEGATIVE FOR TYPE B (NEGATIVE)
== END 2021-12-27 07:58 | disposition left against medical advice (07) ==
LOC: EMS 01:20
DX: R05.9 Cough, unspecified (principal); R09.81 Nasal congestion; Z53.21 Procedure and treatment not carried out due to patient leaving prior to being seen by health care provider; Z20.822 Contact with and (suspected) exposure to COVID-19
CPT/HCPCS: 87804

== ENCOUNTER 2022-01-24 15:55 | Emergency (ER) | payer OTHER ==
[~2022-01-24] VITALS: Ht 165.1 cm; Wt 113.6 kg
[~2022-01-24 15:55] MED LIST changes: -ACET-2080 PO; -CYCL-448 PO; -HYDR-4723 PO; -IBUP-1554 PO; -TRAM-559 PO
[2022-01-24] MEDS ORDERED: KETOROLAC TROMETHAMINE 30 MG/ML VIAL IM ONE (17:00)
[2022-01-24 17:16] LABS: APPEARANCE,URINE CLEAR (CLEAR); BILIRUBIN,URINE NEGATIVE (NEGATIVE); GLUCOSE, URINE (UA) NEGATIVE (NEGATIVE); KETONES,URINE NEGATIVE (NEGATIVE); LEUKOCYTE ESTERASE ,URINE NEGATIVE (NEGATIVE); NITRATE,URINE NEGATIVE (NEGATIVE); OCCULT BLOOD,URINE NEGATIVE (NEGATIVE); PH,URINE 6.5 (5.0-8.0); PROTEIN,URINE TRACE mg/dL (NEGATIVE); SPECIFIC GRAVITIY, URINE 1.009 (1.003-1.030); UROBILINOGEN,URINE <=1.0 mg/dL (<=1.0)
[2022-01-24 18:17] VITALS: BP 152/93
[2022-01-24] MEDS ORDERED: ACET-66 PO (18:18)
[2022-01-24] MEDS ORDERED: IBUP-2070 PO (18:18)
[2022-01-24] MEDS ORDERED: LIDO700A15 TP (18:18)
== END 2022-01-24 19:10 | disposition home or self-care (01) ==
LOC: EMS 15:55
DX: R10.30 Lower abdominal pain, unspecified (principal); R30.0 Dysuria; E11.9 Type 2 diabetes mellitus without complications; I10 Essential (primary) hypertension; N80.9 Endometriosis, unspecified; F17.210 Nicotine dependence, cigarettes, uncomplicated
CPT/HCPCS: 99283; 81003; 84703; 96372; J1885

== ENCOUNTER 2022-04-12 13:18 | Emergency (ER) | payer OTHER ==
[~2022-04-12] VITALS: Ht 165.1 cm; Wt 112.0 kg
[~2022-04-12 13:18] MED LIST changes: +ACET-66 PO; -HYDR25TA2 PO; +IBUP-1492 PO; +LIDO700A15 TP
[2022-04-12] MEDS ORDERED: ACET-2080 PO (14:32)
[2022-04-12] MEDS ORDERED: IBUP-1554 PO (14:32)
[2022-04-12] MEDS ORDERED: CORTSUSP AS (14:32)
[2022-04-12] MEDS ORDERED: CEPH-558 PO (14:32)
[2022-04-12 14:37] LABS: BASOPHILS % (AUTO) 0.3 % (0.0-2.0); EOSINOPHILS % (AUTO) 1.9 % (1.0-6.0); HEMATOCRIT 37.9 % (36-46); HEMOGLOBIN 12.2 g/dL (12.0-16.0); LYMPHOCYTES # (AUTO) 2.8 K/uL (1.0-4.8); LYMPHOCYTES % (AUTO) 27.6 % (22.0-44.0); MEAN CORPUSCULAR HEMOGLOBIN 26.8 pg (26.0-34.0); MEAN CORPUSCULAR HGB CONC 32.1 G/dL (31.0-37.0); MEAN CORPUSCULAR VOLUME 84 fL (80-100); MONOCYTES # (AUTO) 0.4 K/uL (0.1-1.0); MONOCYTES % (AUTO) 4.4 % (2.0-9.0); NEUTROPHILS # (AUTO) 6.7 K/uL (1.8-7.7); NEUTROPHILS % (AUTO) 65.8 % (40.0-70.0); PLATELET COUNT (AUTO) 398 K/uL (150-450); RED BLOOD CELL COUNT(AUTO) 4.53 MIL/uL (4.00-5.20); RED CELL DISTRIBUTION WIDTH 14.5 % (11.5-14.5)
[2022-04-12 14:53] VITALS: BP 146/87
[2022-04-12 14:55] LABS: ANION GAP 6 mmol/L (8-16); CALCIUM, TOTAL 9.6 mg/dL (8.8-10.5); CARBON DIOXIDE 31 mmol/L (22-29); CHLORIDE 101 mmol/L (98-107); CREATININE 0.63 mg/dL (0.60-1.30); GLOMERULAR FILTR. RATE CALC > 60 mL/min (>60); GLUCOSE,RANDOM 106 mg/dL (70-110); POTASSIUM 3.8 mmol/L (3.5-5.1); SODIUM SERUM 138 mmol/L (136-145); UREA NITROGEN, BLOOD 7 mg/dL (7-18)
[2022-04-12 15:01] LABS: ALANINE AMINOTRANSFERASE 20 U/L (12-78); ALBUMIN 3.7 g/dL (3.4-5.0); ALKALINE PHOSPHATASE 70 U/L (46-116); ASPARTATE AMINOTRANSFERASE 14 U/L (15-37); BILIRUBIN,TOTAL 0.3 mg/dL (0.1-1.0); LIPASE 126 U/L (73-393); TOTAL PROTEIN, SERUM 8.2 g/dL (6.4-8.2)
== END 2022-04-12 16:40 | disposition home or self-care (01) ==
LOC: EMS 13:26
DX: R10.2 Pelvic and perineal pain (principal); N80.9 Endometriosis, unspecified; H66.92 Otitis media, unspecified, left ear; E11.9 Type 2 diabetes mellitus without complications; E78.00 Pure hypercholesterolemia, unspecified; I10 Essential (primary) hypertension; F17.210 Nicotine dependence, cigarettes, uncomplicated
CPT/HCPCS: 76856; 80053; 82962; 83690; 84703; 85025; 99284

== ENCOUNTER 2022-04-16 11:08 | Emergency (ER) | payer OTHER ==
[~2022-04-16] VITALS: Ht 165.1 cm; Wt 113.6 kg
[~2022-04-16 11:08] MED LIST changes: +ACET-2080 PO; -ACET-66 PO; +CEPH-558 PO; +CORTSUSP AS; -IBUP-1492 PO; +IBUP-1554 PO; -LIDO700A15 TP
[2022-04-16 12:21] LABS: COVID AG,FIA SOURCE NASOPHARYNGEAL
[2022-04-16 13:13] LABS: INFLUENZA TYPE A NEGATIVE FOR TYPE A (NEGATIVE); INFLUENZA TYPE B NEGATIVE FOR TYPE B (NEGATIVE)
[2022-04-16] MEDS ORDERED: PSEU-221 PO (14:29)
[2022-04-16] MEDS ORDERED: OXYMETAZOLINE HCL 0.05% 15 ML NASAL SPRAY NASAL ONE (14:30)
[2022-04-16 14:43] VITALS: BP 144/82
== END 2022-04-16 14:56 | disposition home or self-care (01) ==
LOC: EMS 11:16
DX: H66.92 Otitis media, unspecified, left ear (principal); N80.9 Endometriosis, unspecified; E11.9 Type 2 diabetes mellitus without complications; E78.00 Pure hypercholesterolemia, unspecified; I10 Essential (primary) hypertension; F17.210 Nicotine dependence, cigarettes, uncomplicated; Z20.822 Contact with and (suspected) exposure to COVID-19
CPT/HCPCS: 87804; 99283

== ENCOUNTER 2022-04-25 11:29 | Emergency (ER) | payer OTHER ==
[~2022-04-25] VITALS: Ht 165.1 cm; Wt 113.6 kg
[~2022-04-25 11:29] MED LIST changes: +PSEU-221 PO
[2022-04-25] MEDS ORDERED: OXYM30SP27 NASAL (12:43)
[2022-04-25 12:53] VITALS: BP 139/70
[2022-04-25] MEDS ORDERED: ACETAMINOPHEN 500 MG TABLET PO ONE (13:30)
== END 2022-04-25 14:30 | disposition home or self-care (01) ==
LOC: EMS 11:37
DX: R09.81 Nasal congestion (principal); E11.9 Type 2 diabetes mellitus without complications; E78.00 Pure hypercholesterolemia, unspecified; I10 Essential (primary) hypertension; N80.9 Endometriosis, unspecified; F17.210 Nicotine dependence, cigarettes, uncomplicated
CPT/HCPCS: 82962; 99282

== ENCOUNTER 2022-09-13 21:30 | Emergency (ER) | payer OTHER ==
[~2022-09-13] VITALS: Ht 165.1 cm; Wt 113.6 kg
[~2022-09-13 21:30] MED LIST changes: +IBUP-1492 PO; +OXYM30SP27 NASAL
[2022-09-13 23:14] VITALS: TEMP 97.6
[2022-09-14] MEDS ORDERED: KETOROLAC TROMETHAMINE 30 MG/ML VIAL IM ONE (00:30)
[2022-09-14] MEDS ORDERED: AMOXICILLIN TRIHYDRATE 250 MG CAPSULE PO ONE (00:30)
[2022-09-14] MEDS ORDERED: AMOX250C4 PO (00:32)
[2022-09-14 01:32] VITALS: BP 132/85; PULSE 82; RESP 14
== END 2022-09-14 01:40 | disposition home or self-care (01) ==
LOC: EMS 21:30
DX: K08.89 Other specified disorders of teeth and supporting structures (principal); E11.9 Type 2 diabetes mellitus without complications; E78.00 Pure hypercholesterolemia, unspecified; I10 Essential (primary) hypertension; N80.9 Endometriosis, unspecified; F17.210 Nicotine dependence, cigarettes, uncomplicated
CPT/HCPCS: 99283; 81025; 96372; J1885

== ENCOUNTER 2022-09-16 15:07 | Emergency (ER) | payer OTHER ==
[~2022-09-16] VITALS: Ht 165.1 cm; Wt 113.6 kg
[~2022-09-16 15:07] MED LIST changes: +AMOX250C4 PO
[2022-09-16 15:32] VITALS: BP 106/46; PULSE 77; RESP 16; TEMP 98.8
[2022-09-16] MEDS ORDERED: ACET-2080 PO ×2 (16:30→18:56)
== END 2022-09-16 16:47 | disposition home or self-care (01) ==
LOC: EMS 15:16
DX: K08.89 Other specified disorders of teeth and supporting structures (principal); E11.9 Type 2 diabetes mellitus without complications; E78.00 Pure hypercholesterolemia, unspecified; I10 Essential (primary) hypertension; N80.9 Endometriosis, unspecified; F17.210 Nicotine dependence, cigarettes, uncomplicated
CPT/HCPCS: 82962; 99282

== ENCOUNTER 2023-01-22 17:59 | Emergency (ER) | payer OTHER ==
[~2023-01-22] VITALS: Ht 165.1 cm; Wt 113.6 kg
[~2023-01-22 17:59] MED LIST changes: -CEPH-558 PO; -CORTSUSP AS; -IBUP-1492 PO; -IBUP-1554 PO; -OXYM30SP27 NASAL; -PSEU-221 PO
[2023-01-22 21:56] VITALS: BP 147/95; PULSE 87; RESP 18; TEMP 99.1
[2023-01-22] MEDS ORDERED: ACET-2080 PO (22:38)
[2023-01-22] MEDS ORDERED: KETOROLAC TROMETHAMINE 30 MG/ML VIAL IM ONE (22:45)
[2023-01-22] MEDS ORDERED: ACETAMINOPHEN/CODEINE 300-30 MG TABLET PO ONE (22:45)
== END 2023-01-23 00:47 | disposition home or self-care (01) ==
LOC: EMS 18:29
DX: N80.9 Endometriosis, unspecified (principal); R10.2 Pelvic and perineal pain; E11.9 Type 2 diabetes mellitus without complications; E78.00 Pure hypercholesterolemia, unspecified; I10 Essential (primary) hypertension; F17.210 Nicotine dependence, cigarettes, uncomplicated
CPT/HCPCS: 99283; 96372; J1885

== ENCOUNTER 2023-07-29 18:43 | Emergency (ER) | payer OTHER ==
[~2023-07-29] VITALS: Ht 167.6 cm; Wt 127.3 kg
[~2023-07-29 18:43] MED LIST changes: -AMOX250C4 PO
[2023-07-29 18:52] VITALS: BP 137/84; PULSE 100; RESP 18; TEMP 98.3
[2023-07-29] MEDS ORDERED: OXYM15SP57 NASAL (21:42)
[2023-07-29] MEDS ORDERED: FLUT16SP NASAL (21:43)
[2023-07-29] MEDS ORDERED: ACET-2080 PO (21:44)
[2023-07-29] MEDS: ACETAMINOPHEN/CODEINE 300-30 MG TABLET PO ONE (21:55)
[2023-07-29] MEDS ORDERED: HYDR-4062 PO (22:50)
== END 2023-07-29 22:08 | disposition home or self-care (01) ==
LOC: EMS 19:02
DX: H83.8X2 Other specified diseases of left inner ear (principal); R09.81 Nasal congestion; R10.2 Pelvic and perineal pain; E11.9 Type 2 diabetes mellitus without complications; I10 Essential (primary) hypertension; F17.210 Nicotine dependence, cigarettes, uncomplicated
CPT/HCPCS: 99283

== ENCOUNTER 2023-11-06 23:40 | Emergency (ER) | payer OTHER ==
[~2023-11-06] VITALS: Ht 165.1 cm; Wt 113.6 kg
[~2023-11-06 23:40] MED LIST changes: +FLUT16SP NASAL; +HYDR-4062 PO; +OXYM15SP63 NASAL
[2023-11-06 23:49] VITALS: BP 154/96; PULSE 69; RESP 20; TEMP 98.1; O2SAT 99
[2023-11-07] MEDS: OxyCODONE HCL/ACETAMINOPHEN 5-325 MG TABLET PO ONE (01:24)
[2023-11-07] MEDS: PENICILLIN V POTASSIUM 500 MG TABLET PO ONE (01:25)
[2023-11-07] MEDS: IBUPROFEN 600 MG TABLET PO ONE (01:25)
[2023-11-07] MEDS ORDERED: IBUP-1492 PO (01:32)
[2023-11-07] MEDS ORDERED: PERCT PO (01:32)
[2023-11-07] MEDS ORDERED: PENI500T2 PO (01:32)
== END 2023-11-07 01:48 | disposition home or self-care (01) ==
LOC: EMS 23:40
DX: M26.34 Vertical displacement of fully erupted tooth or teeth (principal); E11.9 Type 2 diabetes mellitus without complications; I10 Essential (primary) hypertension; F17.210 Nicotine dependence, cigarettes, uncomplicated
CPT/HCPCS: 99284; Z7502; Z7610

== ENCOUNTER 2024-01-03 23:45 | Emergency (ER) | payer OTHER ==
[~2024-01-03] VITALS: Ht 165.1 cm; Wt 113.6 kg
[~2024-01-03 23:45] MED LIST changes: -ACET-2080 PO; -HYDR-4062 PO; +IBUP-1492 PO; -OXYM15SP63 NASAL; +PENI500T2 PO; +PERCT PO
[2024-01-03 23:57] VITALS: BP 166/107; PULSE 78; RESP 18; TEMP 97.9; O2SAT 100
[2024-01-04] MEDS: KETOROLAC TROMETHAMINE 30 MG/ML VIAL IM ONE (00:36)
[2024-01-04] MEDS: HYDROCODONE/ACETAMINOPHEN 5-325 MG TABLET PO ONE (00:36)
[2024-01-04] MEDS ORDERED: HYDR-4072 PO (00:43)
== END 2024-01-04 00:53 | disposition home or self-care (01) ==
LOC: EMS 23:45
DX: K02.9 Dental caries, unspecified (principal); E11.9 Type 2 diabetes mellitus without complications; I10 Essential (primary) hypertension; F17.210 Nicotine dependence, cigarettes, uncomplicated; E78.00 Pure hypercholesterolemia, unspecified; Z79.899 Other long term (current) drug therapy
CPT/HCPCS: 99283; 96372; J1885

== ENCOUNTER 2024-03-18 17:45 | Emergency (ER) | payer OTHER ==
[~2024-03-18] VITALS: Ht 162.6 cm; Wt 106.8 kg
[~2024-03-18 17:45] MED LIST changes: +HYDR-4072 PO
[2024-03-18 17:52] VITALS: TEMP 98
[2024-03-18 18:29] VITALS: BP 148/98; PULSE 82; RESP 18; O2SAT 100
[2024-03-18] MEDS: AMOX TR/POT CLAV 875 MG/125 MG TABLET PO ONE (19:03)
[2024-03-18] MEDS: OxyCODONE HCL 5 MG IR TABLET PO ONE (19:03)
[2024-03-18] MEDS ORDERED: ACET-3385 PO (19:15)
[2024-03-18] MEDS ORDERED: OXYC5 PO (19:15)
[2024-03-18] MEDS ORDERED: AMOX-457 PO (19:15)
== END 2024-03-18 19:44 | disposition home or self-care (01) ==
LOC: EMS 17:45
DX: K02.9 Dental caries, unspecified (principal); E11.9 Type 2 diabetes mellitus without complications; E78.00 Pure hypercholesterolemia, unspecified; I10 Essential (primary) hypertension; F17.210 Nicotine dependence, cigarettes, uncomplicated; Z79.899 Other long term (current) drug therapy
CPT/HCPCS: 82962; 99283

== ENCOUNTER 2024-04-17 18:34 | Emergency (ER) | payer MEDICAID, OTHER ==
[~2024-04-17] VITALS: Ht 165.1 cm; Wt 113.6 kg
[~2024-04-17 18:34] MED LIST changes: +ACET-3385 PO; +AMOX-457 PO; +OXYC5 PO
[2024-04-17 18:45] VITALS: BP 159/81; PULSE 75; RESP 16; TEMP 98.7; O2SAT 100
[2024-04-17] MEDS ORDERED: HYDR-4062 PO (20:42)
[2024-04-17] MEDS ORDERED: IBUP-1554 PO (20:42)
[2024-04-17] MEDS ORDERED: PENI500T2 PO (20:42)
== END 2024-04-17 20:49 | disposition home or self-care (01) ==
LOC: EMS 18:34
DX: K04.7 Periapical abscess without sinus (principal); E11.9 Type 2 diabetes mellitus without complications; I10 Essential (primary) hypertension; E78.00 Pure hypercholesterolemia, unspecified; F17.210 Nicotine dependence, cigarettes, uncomplicated; Z79.899 Other long term (current) drug therapy
CPT/HCPCS: 99283; Z7502

== ENCOUNTER 2024-06-14 23:39 | Emergency (ER) | payer SELFPAY ==
[~2024-06-14] VITALS: Ht 165.1 cm; Wt 131.8 kg
[~2024-06-14 23:39] MED LIST changes: +HYDR-4062 PO; +IBUP-1554 PO
[2024-06-14 23:55] VITALS: BP 164/105; PULSE 71; RESP 20; TEMP 97.7; O2SAT 100
[2024-06-15] MEDS ORDERED: HYDR-4062 PO (00:26)
[2024-06-15] MEDS: IBUPROFEN 600 MG TABLET PO ONE (00:36)
[2024-06-15] MEDS: HYDROCODONE/ACETAMINOPHEN 5-325 MG TABLET PO ONE (00:36)
== END 2024-06-15 00:55 | disposition home or self-care (01) ==
LOC: EMS 23:39
DX: K08.89 Other specified disorders of teeth and supporting structures (principal); I10 Essential (primary) hypertension; F17.210 Nicotine dependence, cigarettes, uncomplicated; E78.00 Pure hypercholesterolemia, unspecified; E11.9 Type 2 diabetes mellitus without complications; Z79.899 Other long term (current) drug therapy; Z79.1 Long term (current) use of non-steroidal anti-inflammatories (NSAID)
CPT/HCPCS: 99283

== ENCOUNTER 2024-08-10 10:42 | Emergency (ER) | payer SELFPAY ==
[~2024-08-10] VITALS: Ht 165.1 cm; Wt 113.6 kg
[2024-08-10 10:51] VITALS: BP 180/86; PULSE 94; RESP 16; TEMP 98.2; O2SAT 100
[2024-08-10] MEDS: TraMADol HCL 50 MG TABLET PO ONE (12:05)
[2024-08-10] MEDS: KETOROLAC TROMETHAMINE 30 MG/ML VIAL IM ONE (12:05)
[2024-08-10] MEDS ORDERED: HYDR-4062 PO ×2 (12:49→12:58)
[2024-08-10] MEDS ORDERED: PENI500T2 PO (12:58)
== END 2024-08-10 13:11 | disposition home or self-care (01) ==
LOC: EMS 10:56
DX: K01.1 Impacted teeth (principal); E11.9 Type 2 diabetes mellitus without complications; E78.00 Pure hypercholesterolemia, unspecified; I10 Essential (primary) hypertension; F17.210 Nicotine dependence, cigarettes, uncomplicated; K08.89 Other specified disorders of teeth and supporting structures; Z79.899 Other long term (current) drug therapy
CPT/HCPCS: 99283; 82962; 96372; J1885

== ENCOUNTER 2024-08-15 17:59 | Emergency (ER) | payer SELFPAY ==
[~2024-08-15] VITALS: Ht 165.1 cm; Wt 113.6 kg
[~2024-08-15 17:59] MED LIST changes: -ACET-3385 PO; -AMOX-457 PO; -IBUP-1492 PO; -IBUP-1554 PO; -OXYC5 PO; -PERCT PO
[2024-08-15 18:04] VITALS: BP 167/97; PULSE 94; RESP 22; TEMP 98.6; O2SAT 98
[2024-08-15 18:26] LABS: GLUCOMETER DEV NAME(LOC) ER.7; GLUCOSE,POINT OF CARE 201 MG/DL (70-110)
[2024-08-15] MEDS ORDERED: IBUP-1492 PO (21:26)
== END 2024-08-15 21:51 | disposition home or self-care (01) ==
LOC: EMS 17:59
DX: K08.89 Other specified disorders of teeth and supporting structures (principal); E11.9 Type 2 diabetes mellitus without complications; E78.00 Pure hypercholesterolemia, unspecified; I10 Essential (primary) hypertension; F17.210 Nicotine dependence, cigarettes, uncomplicated; Z79.2 Long term (current) use of antibiotics; Z79.899 Other long term (current) drug therapy
CPT/HCPCS: 82962; 99283

== ENCOUNTER 2024-11-30 09:05 | Emergency (ER) | payer OTHER ==
[~2024-11-30] VITALS: Ht 170.2 cm; Wt 100.0 kg
[~2024-11-30 09:05] MED LIST changes: -FLUT16SP NASAL; -HYDR-4062 PO; -HYDR-4072 PO; +IBUP-1492 PO
[2024-11-30 09:12] VITALS: TEMP 98.7
[2024-11-30] MEDS ORDERED: IBUP-1554 PO (10:00)
[2024-11-30] MEDS ORDERED: HYDR-4062 PO (10:00)
[2024-11-30] MEDS ORDERED: PENI500T2 PO (10:00)
[2024-11-30 10:17] VITALS: BP 155/85; PULSE 85; RESP 18; O2SAT 98
== END 2024-11-30 10:18 | disposition home or self-care (01) ==
LOC: EMS 09:06
DX: K04.7 Periapical abscess without sinus (principal); K08.89 Other specified disorders of teeth and supporting structures; E11.65 Type 2 diabetes mellitus with hyperglycemia; F17.210 Nicotine dependence, cigarettes, uncomplicated; E78.00 Pure hypercholesterolemia, unspecified; I10 Essential (primary) hypertension; Z79.899 Other long term (current) drug therapy
CPT/HCPCS: 82962; 99283